=== PATIENT | male | born 1970 | race Caucasian/White ===

== ENCOUNTER 2016-08-30 08:54 | Emergency (ER) | payer BC ==
[~2016-08-30] VITALS: Ht 185.4 cm; Wt 90.0 kg
[2016-08-30 08:57] VITALS: TEMP 36.8; Ht 185.4 cm; Wt 90.0 kg
[2016-08-30] MEDS ORDERED: CYCL5TAB PO (09:08)
[2016-08-30] MEDS ORDERED: PRED-301 PO (09:08)
--- NOTE | 2016-08-30 09:32 | EMERGENCY ROOM VISIT NOTE ---
History Report prepared by Janes: Rajwinder Hoyos Under the Supervision of: Dr. Almas Akers D.O. First contact with patient: 09:17 Chief Complaint: BACK PAIN Stated Complaint: LOWER BACK PAIN History of Present Illness The patient is a 45 year old male who presents to the Emergency Room with complaints of constant burning back pain beginning yesterday. The patient states that he has had this type of pain before 3 months ago but it was not as severe. He complains of calf pain, butt pain, numbness and tingling in the toes , and leg pain. He denies any numbness or tingling in the groin, urinary incontinence, bowel incontinence, fever, chills, trauma, drug use, or previous surgery. The patient reports that when he put his shoes on his pain worsened. He notes that he has herniated discs and has been taking prednisone and muscle relaxers. He states that his pain is a 4/10 when he is sitting and increases when he exacerbates the pain. The patient reports that he has had 2 epidurals previously with his last one being [] year ago. Source of History: patient Onset: yesterday Position: back Quality: burning Timing: constant Modifying Factors (Worsening): other (putting shoes on) Associated Symptoms: No chills, No fevers Note: He complains of calf pain, butt pain, numbness and tingling in the toes, and leg pain. He denies any numbness or tingling in the groin, urinary incontinence , bowel incontinence, trauma, drug use, or previous surgery. Review of Systems See above for pertinent positives & negatives. A total of 10 systems reviewed and were otherwise negative. Past Medical & Surgical Medical Problems: (1) Herniated disc Family History No pertinent family history stated. Social History Smoking Status: Never Smoker Drug Use: none Marital Status: Housing Status: lives with significant other Current/Historical Medications Scheduled Cyclobenzaprine Hcl (Flexeril), Unknown Dose PO TID Gabapentin (Neurontin), 1 CAP PO TID Prednisone (Prednisone), 0 PO UD Scheduled PRN Hydrocodon/Acetaminophen 5MG/300MG (Vicodin (5MG/300MG)), 1-2 TAB PO Q6H PRN for severe pain Ibuprofen Tab (Motrin), 800 MG PO Q8H PRN for Pain Allergies Coded Allergies: No Known Allergies (Unverified , 08/30/16) Physical Exam Vital Signs Date Time Temp Pulse Resp B/P Pulse Ox O2 Delivery O2 Flow Rate FiO2 08/30/16 08:57 36.8 101 18 143/80 100 Room Air Physical Exam GENERAL: Patient is well appearing and in no acute distress. HEENT: No acute trauma, normocephalic atraumatic, mucous membranes moist, no nasal congestion, no scleral icterus. NECK: No stridor, no adenopathy, no meningismus, trachea is midline. LUNGS: No dyspnea. Clear to auscultation and equal bilaterally. No wheeze, no rhonchi. HEART: Regular rate and rhythm. No murmurs, rubs, gallops appreciated. ABDOMEN: Soft, nontender, bowel sounds positive, no masses appreciated, no peritonitis. BACK: No midline tenderness, no CVA tenderness EXTREMITIES: Tenderness to palpation over piriformis musculature which reproduces radicular type pain down the leg. He is able to walk on his tip toes. NEUROLOGIC: Alert and oriented, no acute motor or sensory deficits, no focal weakness, cranial nerves grossly intact. SKIN: No rash, no jaundice, no diaphoresis. Medical Decision & Procedures ED Course 0917: The patient was evaluated in room A10. A complete history and physical exam was performed. 0945: Dilaudid Inj 2mg PRN IM pain. 0957: Reevaluated the patient. Discussed results and discharge instructions: He verbalized understanding and agreement. The patient is ready for discharge. Medical Decision Differential diagnosis: Etiologies such as musculoskeletal, disc herniation, fracture, aortic disease, metastatic disease, cord compression, discitis, infection, renal colic, gastrointestinal, acute exacerbation of chronic back pain, sciatica, cauda equina, as well as others were entertained. Patient is a 45-year-old male with significant past medical history of a previous cervical radiculopathy for which he receives occasional epidural injections, the last most recently several years ago. He reports that he is had acute onset left sided buttocks pain that radiates down the back of the thigh into the feet with tingling. Rates the pain as 7 out of 10 once at its worst otherwise was 3 out of 10, on physical exam he is supine in the bed in a position of comfort. There is no tenderness over the lumbar spine, bony pelvis , there is mild tenderness to palpation over the piriformis muscle. He is able to stand on his tippy toes, he has a normal gait. Patient denies fevers chills nausea vomiting, IV drug use, trauma. 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 He has called [facility] see his orthopedist and they prescribed him prednisone which she is currently taking otherwise is not taking any medication. I will prescribe him Motrin, a short supply of Vicodin, and start gabapentin I believe this pain to be a piriformis syndrome and have referred him to his primary care doctor. His desires to receive an MRI to rule out any joint issues, I explained he does not meet any high-risk criteria for cauda equina or epidural abscess and conservative treatment is the recommended approach. He'll be discharged home in improved stable condition. [place] Drug Monitoring Program Search Results: patient reviewed within database, no issues identified Impression Primary Impression: Piriformis syndrome of left side Additional Impressions: Radicular pain of left lower extremity History of MRI of cervical spine Scribe Attestation The scribe's documentation has been prepared under my direction and personally reviewed by me in its entirety. I confirm that the note above accurately reflects all work, treatment, procedures, and medical decision making performed by me. Departure Information Dispostion Home / Self-Care Prescriptions Gabapentin (NEURONTIN) 100 Mg Cap 1 CAP PO TID for 30 Days, #30 CAP 1 Refill Prov: Almas Akers D.O. 08/30/16 Hydrocodon/Acetaminophen 5MG/300MG (VICODIN (5MG/300MG)) 1 Tab Tab 1-2 TAB PO Q6H Y for severe pain, #14 TAB Prov: Almas Akers D.OMary 08/30/16 Ibuprofen Tab (MOTRIN) 800 Mg Tab 800 MG PO Q8H Y for Pain, #30 TAB Prov: Almas Akers D.OMary 08/30/16 Referrals Ernesto Buck D.O. (PCP) Forms HOME CARE DOCUMENTATION FORM, IMPORTANT VISIT INFORMATION Patient Instructions My [facility] Additional Instructions Follow-up with your primary care provider or orthopedist in one to 2 weeks if the pain does not improve. Ice for the first 48-72 hours is best after that moist heat and ice. Do not apply ice directly to the skin, do not sleep on a heating pad. You been prescribed Motrin, Vicodin for severe pain, and gabapentin for radicular type, nerve pain. It is important he follow-up with your primary care provider for possible continuation of the gabapentin. Physical therapy is also a great treatment for piriformis syndrome. Return for numbness and tingling in the groin, loss of control of her bowel or bladder function, or any other concerns. Problem Qualifiers
[2016-08-30] MEDS ORDERED: HYDR-3419 PO (09:40)
[2016-08-30] MEDS ORDERED: IBUP-1451 PO (09:40)
[2016-08-30] MEDS ORDERED: GABA1CAP PO (09:40)
[2016-08-30] MEDS ORDERED: HYDROmorphone INJ 2 MG/ML SYR/VIAL IM PRN (09:45)
[2016-08-30] MEDS ORDERED: ONDANSETRON 4MG OD TAB PO STA (09:52)
[2016-08-30 10:05] VITALS: BP 140/94; PULSE 96; O2SAT 94
== END 2016-08-30 10:06 | disposition home or self-care (01) ==
LOC: C.EDB 08:56 → C.EDA 10:06
DX: G57.01 Lesion of sciatic nerve, right lower limb (principal); M54.10 Radiculopathy, site unspecified